=== PATIENT | female | born 1965 | race Caucasian/White ===

== ENCOUNTER → 2018-06-11 | Outpatient (CLI) | payer BC ==
--- NOTE | 2018-06-15 08:53 | MM ---
Reason for exam: screening (asymptomatic). Last mammogram was performed 1 year ago. History: Patient is nulliparous. Family history of premenopausal breast cancer in cousin. Physical Findings: A clinical breast exam by your physician is recommended on an annual basis and results should be correlated with mammographic findings. MG 3D Screening Mammo W/Cad Bilateral CC and MLO view(s) were taken. Prior study comparison: June 04, 2017, bilateral MG screening mammo w CAD. January 09, 2016, bilateral MG screening mammo w CAD. The breast tissue is extremely dense which could obscure a lesion on mammography. No significant changes when compared with prior studies. ASSESSMENT: Benign, BI-RAD 2 RECOMMENDATION: Routine screening mammogram of both breasts in 1 year.
== END ==
LOC: RADMAMWWP 16:23
PROVIDERS: ATTEND Family Medicine
DX: Z12.31 Encounter for screening mammogram for malignant neoplasm of breast (principal)
CPT/HCPCS: 77063; 77067

== ENCOUNTER → 2019-01-21 | Outpatient (CLI) | payer BC ==
--- NOTE | 2019-01-21 11:48 | US ---
EXAMINATION TYPE: US thyroid st tissue head/neck DATE OF EXAM: 01/21/2019 COMPARISON: NONE CLINICAL HISTORY: E04.1 Thyroid nodule. Thyroid nodules. GLAND SIZE: Right Lobe: 3.5 x 0.9 x 0.9 cm Overall Parenchyma: heterogenous Left Lobe: 2.5 x 1.0 x 0.4 cm Overall Parenchyma: heterogeneous Isthmus Thickness: 0.19 cm NODULES RIGHT: # of nodules measured on right: 0 LEFT: # of nodules measured on left: 0 ISTHMUS: # of nodules measured in the isthmus: 0 IMPRESSION: Atrophic and heterogenous thyroid gland without focal measurable nodule. Small size may b e sequela of chronic thyroiditis.
== END | disposition home or self-care (01) ==
LOC: RADUSWWP 10:49
PROVIDERS: ATTEND Family Medicine
DX: E03.4 Atrophy of thyroid (acquired) (principal)
CPT/HCPCS: 76536

== ENCOUNTER → 2019-02-01 | Outpatient (CLI) | payer BC ==
--- NOTE | 2019-02-01 11:17 | BD ---
EXAMINATION TYPE: Axial Bone Density DATE OF EXAM: 02/01/2019 COMPARISON: NONE CLINICAL HISTORY: Postmenopausal female. Osteoporosis screening. Height: 68.5 IN Weight: 138 LBS RISK FACTORS HISTORY OF: History of Wrist Fracture: ALEK When: BETWEEN AGE 12 AND 17 Family History of Osteoporosis: YES MOTHER, AUNTS Active: YES If Premenopausal, do you have irregular periods: YES LAST PERIOD 10/20 MEDICATIONS: Thyroid Medications: YES Which medication: Synthroid How Lon+ YEARS Additional Medications: VIT D, SYNTHROID, OMEGA FATTY ACID EXAM MEASUREMENTS: Bone mineral densitometry was performed using the [employer] System. Bone mineral density as measured about the Lumbar spine is: ----- L1-L4(G/cm2): 0.821 T Score Values are as follows: ----- L2: -3.1 ----- L3: -3.4 ----- L4: -3.2 ----- L1-L4: -3.0 Bone mineral density BASELINE Bone mineral density about the R hip (g/cm2): 0.778 Bone mineral density about the L hip (g/cm2): 0.798 T Score values are as follows: -----R Neck: -1.9 -----L Neck: -1.7 -----R Total: -1.0 -----L Total: -1.3 Bone mineral density BASELINE IMPRESSION: Osteoporosis (T Score less than -2.5). There is increased fracture risk and therapy is usually indicated based on age. Re-Screen 1-2 years. NOTE: T-SCORE=SD OF THE YOUNG ADULT MEAN.
== END | disposition home or self-care (01) ==
LOC: RADBDWWP 10:45
PROVIDERS: ATTEND Family Medicine
DX: M81.0 Age-related osteoporosis without current pathological fracture (principal)
CPT/HCPCS: 77080

== ENCOUNTER → 2022-06-12 | Outpatient (CLI) | payer BC ==
--- NOTE | 2022-06-12 17:49 | BD ---
EXAMINATION TYPE: Axial Bone Density DATE OF EXAM: 06/12/2022 COMPARISON: NONE CLINICAL HISTORY: 56 years year old Female. ICD-10 CODE: Z78.0 Postmenopausal Height: 68.5 Weight: 147.4 FRAX RISK QUESTIONS: Alcohol (3 or more units per day): NO Family History (Parent hip fracture): NO Glucocorticoids (More than 3mos): NO History of Fracture in Adulthood: NO Secondary Osteoporosis: 1. Type 1 Diabetes: NO 2. Hyperthyroidism: IN THE PAST 3. Menopause before 45: NO 4. Malnutrition: NO 5. Chronic liver disease: NO Rheumatoid Arthritis: NO Current Tobacco Use: NO RISK FACTORS HISTORY OF: Hip Fracture (Right/Left): NO Spine Fracture: NO History of Wrist Fracture: BILATERAL When: A CHILD Surgery to Spine/Hip(right/left)/Wrist (right/left): NO Family History of Osteoporosis: MOM, MATERNAL AUNTS X 3, Active: NO Diet low in dairy products/other sources of calcium: NO Postmenopausal woman: YES Take estrogen and/or progesterone medications: NO Lost more than 2 inches in height since high school: NO Frequent falls: NO Poor Health: YES Hyperparathyroidism: YES PAST RADIATION TREATMENTS Adrenal Insufficiency: NO MEDICATIONS: Prednisone or other steroids: NO Thyroid Medications: SYNTHROID How Long: ON AND OFF SINCE AGE 8 Osteoporosis Medications: NO Additional Medications: SYNTHROID, VIT D, MULTI VIT., EXAM MEASUREMENTS: Bone mineral densitometry was performed using the [employer] System. Bone mineral density as measured about the Lumbar spine is: ----- L1-L4(G/cm2): 0.776 T Score Values are as follows: ----- L1: -2.5 ----- L2: -3.3 ----- L3: -3.4 ----- L4: -4.3 ----- L1-L4: -3.4 BASELINE STUDY Bone mineral density about the R hip (g/cm2): 0.847 Bone mineral density about the L hip (g/cm2): 0.807 T Score values are as follows: -----R Neck: -1.4 -----L Neck: -1.7 -----R Total: -1.0 -----L Total: -1.4 BASELINE STUDY FRAX%s: The graph provided illustrates a 6.8% chance for a major osteoporotic fx and a 0.7% chance fo r the hips probability for fx in 10 years time. IMPRESSION: Osteoporosis (T Score less than -2.5). There is increased fracture risk and therapy is usually indicated based on age. Re-Screen 1-2 years. NOTE: T-SCORE=SD OF THE YOUNG ADULT MEAN.
--- NOTE | 2022-06-13 11:47 | MM ---
Reason for Exam: Screening (asymptomatic). Last mammogram was performed 4 year(s) and 0 month(s) ago. Patient History: Menarche at age 13. Patient has no children. Maternal cousin had breast cancer. Risk Values: Jazlyn 5 year model risk: 1.3%. NCI Lifetime model risk: 9.1%. Prior Study Comparison: 01/09/2016 Bilateral Screening Mammogram, [facility]. 06/04/2017 Bilateral Screening Mammogram, [facility]. 06/11/2018 Bilateral Screening Mammogram, [facility]. Tissue Density: The breast tissue is heterogeneously dense. This may lower the sensitivity of mammography. Findings: Analyzed By CAD. There is no suspicious group of microcalcifications or new suspicious mass in either breast. No significant change from prior exams. Overall Assessment: Negative, BI-RAD 1 Management: Screening Mammogram of both breasts in 1 year. A clinical breast exam by your physician is recommended on an annual basis and results should be correlated with mammographic findings. Electronically signed and approved by: Qasim Mejía D.O.
== END | disposition home or self-care (01) ==
LOC: RADBDWWP 14:09
PROVIDERS: ATTEND Family Medicine
DX: Z12.31 Encounter for screening mammogram for malignant neoplasm of breast (principal); M81.0 Age-related osteoporosis without current pathological fracture; Z78.0 Asymptomatic menopausal state
CPT/HCPCS: 77063; 77067; 77080

== ENCOUNTER → 2022-08-07 | Outpatient (CLI) | payer BC ==
[2022-08-07 16:42] LABS: African American GFR (CKD) >90 (>60 ml/min/1.73 sqM); Blood Urea Nitrogen 14 mg/dL (7-17); Non-African American GFR(CKD) >90 (>60 ml/min/1.73 sqM)
--- NOTE | 2022-08-07 22:20 | CT ---
EXAMINATION TYPE: CT brain wo/w con DATE OF EXAM: 08/07/2022 COMPARISON: None. HISTORY: vertigo like symptoms CT DLP: 2108.40 mGycm Automated exposure control for dose reduction was used. CONTRAST: CT scan of the head is performed without and with IV Contrast, patient injected with 70 mL of Isovue 300. FINDINGS: There is no intracranial hemorrhage, mass effect, or midline shift seen. The ventricles and sulci ar e within normal limits in size for patient's age. Benedict-white matter differentiation is maintained. Po stcontrast images show no suspicious enhancing intraparenchymal mass. The globes are intact and the visualized sinuses are clear. No abnormal fluid signal in the mastoid air cells bilaterally. IMPRESSION: No suspicious finding seen to account for patient's symptoms of vertigo.
== END | disposition home or self-care (01) ==
LOC: RADCTMAIN 06-20 18:44
PROVIDERS: ATTEND Family Medicine
DX: R42 Dizziness and giddiness (principal)
CPT/HCPCS: 82565; 84520; 70470; 36415; Q9967